=== PATIENT | male | born 1950 ===

== ENCOUNTER 2017-01-28 08:35 | Day surgery (SDC) | payer BC ==
[2017-01-23 13:24] VITALS: BMI 28.1
[2017-01-28] MEDS ORDERED: Lactated Ringer's 1,000 ML IV ONE ×3 (12:10)
[2017-01-28] MEDS ORDERED: Midazolam 2 MG/2 ML VIAL ONE (12:22)
[2017-01-28] MEDS ORDERED: Propofol 10 mg/ml Inj (20 ML) ONE (12:22)
[2017-01-28] MEDS ORDERED: Lidocaine Hydrochloride 5 ML INJ ONE (12:23)
[2017-01-28] MEDS ORDERED: ePHEDrine 50 mg/ml Inj ONE (12:23)
[2017-01-28] MEDS ORDERED: Bupivacaine HCl 0.25% PF (10 ml) Inj ONE (12:43)
[2017-01-28] MEDS ORDERED: ceFAZolin IV 1 gm in Dextrose 1 GM/50 ML BAG IVPB ONE (12:43)
[2017-01-28] MEDS ORDERED: HYDROmorphone 0.5 mg/0.5 ml ISec IVP PRN (13:07)
[2017-01-28] MEDS ORDERED: Oxycodone/Acetaminophen 5/325 mg Tab PO PRN (13:13)
[2017-01-28 13:59] VITALS: BP 113/73; PULSE 73; RESP 18; TEMP 97.1; O2SAT 96
--- NOTE | 2017-01-28 14:56 | OP ---
PROCEDURE DATE: 01/28/2017 PREOPERATIVE DIAGNOSIS: Mass of the left elbow. POSTOPERATIVE DIAGNOSIS: Mass of the left elbow. PROCEDURE PERFORMED: Wide and deep excision of suspicious mass of the left elbow with a radical rese ction and adjacent tissue transfer closure. SURGEON: Livan Stafford MD ANESTHESIA: General. ESTIMATED BLOOD LOSS: 20 mL. POSTOPERATIVE CONDITION: Stable. INDICATIONS FOR SURGERY: A 66-year-old male with a rapidly growing mass of his left elbow. A needle biopsy was inconclusive. He is now admitted for a wide and deep excision. GROSS FINDINGS: The mass had mixed characteristics, so it was treated as a malignant lesion. A wide and deep and radical resection was performed. There was bleeding noted from the ulnar blood vessel and this was repaired. An adjacent tissue transfer closure greater than 30 cm was utilized to close the open wound. PROCEDURE: The patient taken to the operating room and placed in supine position. Local anesthesia was administered. A generous elliptical incision was made surrounding the mass. It was encountered, dissected free into the muscle layer completely and all layers were completely removed. Bleeding wa s controlled using the Bovie. A Prolene was used to repair the ulnar artery. Generous tissue flaps were raised using the Bovie and a greater than 30 square cm adjacent tissue transfer closure was perf ormed using multiple layers of Monocryl, subcuticular Monocryl, and glue. The patient tolerated the procedure well, returned to recovery room in stable condition. Livan Stafford MD cc: [id number] TT: 01/28/2017 14:55:17 en
== END 2017-01-28 14:01 | disposition home or self-care (01) ==
LOC: C.SDS 08:35
PROVIDERS: ATTEND Surgery
DX: D21.12 Benign neoplasm of connective and other soft tissue of left upper limb, including shoulder (principal)
CPT/HCPCS: 24077; 82948; 88305; J0690; J2250; J2704; J3010; J7120

== ENCOUNTER 2017-02-07 17:34 | Observation (INO) | payer BC ==
[2017-01-23 13:24] VITALS: BMI 28.1
[2017-02-07 22:39] LABS: ALB/GLOB RATIO 1.3 (1.0-2.1); ALBUMIN 4.1 g/dL (3.5-5.0); ALT/SGPT 32 U/L (21-72); AST/SGOT 20 U/L (17-59); BLOOD UREA NITROGEN 18 mg/dL (9-20); CALCIUM 8.8 mg/dl (8.6-10.4); GFR AFRICAN-AMERICAN > 60; GFR NON-AFRICAN AMERICAN > 60
[2017-02-07 23:11] LABS: PROTHROMBIN TIME 11.6 SECONDS (9.7-12.2)
[2017-02-07 23:33] LABS: HEMOGLOBIN 14.6 g/dL (12.0-18.0); MEAN CELL VOLUME 89.2 fL (80.0-94.0); MEAN CORPUSCULAR HEMOGLOBIN 29.3 pg (27.0-31.0); MEAN CORPUSCULAR HGB CONC 32.9 g/dL (33.0-37.0); MEAN PLATELET VOLUME 11.6 fL (7.2-11.7); RBC 4.98 Mil/uL (4.40-5.90); RED CELL DISTRIBUTION WIDTH 13.9 % (11.5-14.5); WHITE BLOOD COUNT 6.6 K/uL (4.8-10.8)
--- NOTE | 2017-02-08 01:27 | CP.PCM.HP ---
<Horacio Mercedes Melissa - Last Filed: 02/08/17 01:47> History of Present Illness - History of Present Illness History of Present Illness: CC: Left forearm swelling s/p lipoma resection HPI: Mr Monte is a 66 yo male who presented to the ED for Left forearm swelling, discomfort and bleeding from the surgical site. Mr Monte is s /p lipoma resection [01/28] performed by Dr. Stafford. On 01/30 the patient noticed bleeding from the surgical site. He saw Dr Stafford regarding the bleed on 02/01 who advised him to apply pressure. Over the next few days he noticed increasing swelling and ecchymosis in the left forearm. He admits to tingling and pain in his hand and fingers over that time. He called Dr. Stafford who advised him to come the ED as Dr Stafford was concerned about a venous thrombosis. He took tramadol which controlled his pain. The patient has not taken his aspirin since the surgery as instructed. He denies fevers, chills, diaphoresis. PMHx: DM, HTN, HLD PSHx: Inguinal hernia repair 1973; Ventral hernia repair 1998; Cath 2005; Colonoscopy 2013 Medications: Losartan 25mg po daily, Metformin 500mg po daily, atorvastatin 10mg po daily, Aspirin 81mg Allergies: NKA FamHx: Sister has DM SocialHx: Quit smoking in 2001, smoked few cigarettes a week prior to that; social drinker; works as a doorman; lives with Present on Admission - Present on Admission Any Indicators Present on Admission: No Review of Systems - Constitutional Constitutional: absent: Chills, Fever - EENT Eyes: absent: Blurred Vision, Change in Vision Ears: absent: Ear Pain Nose/Mouth/Throat: absent: Sore Throat - Cardiovascular Cardiovascular: absent: Chest Pain, Diaphoresis, Dyspnea - Respiratory Respiratory: absent: Cough, Dyspnea - Gastrointestinal Gastrointestinal: absent: Bloating, Diarrhea, Vomiting - Genitourinary Genitourinary: absent: Dysuria - Musculoskeletal Musculoskeletal: Joint Swelling Additional comments: swelling around left elbow joint - Integumentary Integumentary: Wounds - Neurological Neurological: absent: Behavioral Changes - Psychiatric Psychiatric: absent: Behavioral Changes - Hematologic/Lymphatic Hematologic: absent: Easy Bleeding Past Patient History - Past Medical History & Family History Past Medical History?: Yes - Past Social History Smoking Status: Former Smoker - CARDIAC Hx Cardiac Disorders: Yes Hx Hypercholesterolemia: Yes Hx Hypertension: Yes - ENDOCRINE/METABOLIC Hx Endocrine Disorders: Yes Hx Diabetes Mellitus Type 2: Yes - INTEGUMENTARY Hx Dermatological Problems: Yes Other/Comment: HX: MASS LEFT ELBOW - MUSCULOSKELETAL/RHEUMATOLOGICAL Hx Musculoskeletal Disorders: Yes Hx Fractures: Yes (HX: FX. LEFT ELBOW) - SURGICAL HISTORY Hx Surgeries: Yes Hx Herniorrhaphy: Yes (bilat ing ventral) - ANESTHESIA Hx Anesthesia: Yes Hx Anesthesia Reactions: No Hx Malignant Hyperthermia: No Meds Allergies/Adverse Reactions: Allergies Allergy/AdvReac Type Severity Reaction Status Date / Time No Known Allergies Allergy Verified 02/08/17 00:11 Physical Exam - Constitutional Appears: Well, Non-toxic, No Acute Distress - Head Exam Head Exam: NORMAL INSPECTION - Eye Exam Eye Exam: EOMI, Normal appearance Pupil Exam: NORMAL ACCOMODATION, PERRL - Neck Exam Neck exam: Positive for: Normal Inspection - Respiratory Exam Respiratory Exam: Clear to Auscultation Bilateral, NORMAL BREATHING PATTERN. absent: Wheezes - Cardiovascular Exam Cardiovascular Exam: REGULAR RHYTHM, RRR, +S1, +S2 - GI/Abdominal Exam GI & Abdominal Exam: Normal Bowel Sounds, Soft - Rectal Exam Rectal Exam: Deferred - Extremities Exam Extremities exam: Positive for: joint swelling, tenderness. Negative for: pedal edema Additional comments: bloody discharge from surgical site incision ecchymosis around left elbow joint - Neurological Exam Neurological exam: Alert, Normal Gait, Oriented x3 - Psychiatric Exam Psychiatric exam: Normal Affect, Normal Mood - Skin Skin Exam: Erythema, Warm Results - Labs Result Diagrams: 02/07/17 22:15 02/07/17 22:15 Assessment & Plan (1) Swelling of elbow joint Assessment and Plan: wbc 6.6, afebrile vancomycin 1g q12 iv rocephin 1g daily iv ct upper left extremity w/ iv contrast venous duplex scan upper left extremity consult surgery, dr Stafford, help appreciated elevate left arm morning labs ordered, f/u Status: Acute (2) Diabetes mellitus Assessment and Plan: con't home med metformin 500mg po daily Status: Acute (3) HTN (hypertension) Assessment and Plan: con't home med losartan 25mg po daily Status: Acute (4) HLD (hyperlipidemia) Assessment and Plan: con't home med crestor 5mg po daily Status: Acute (5) Prophylactic measure Assessment and Plan: Per Dr. Monae, non indicated at this time Status: Acute <David Monae P - Last Filed: 02/12/17 06:26> Results - Vital Signs Recent Vital Signs: Last Vital Signs Temp 98.0 F 02/11/17 17:37 Pulse 87 02/11/17 17:37 Resp 20 02/11/17 17:37 BP 154/87 H 02/11/17 17:37 Pulse Ox 96 02/11/17 17:37 - Labs Result Diagrams: 02/11/17 08:00 02/11/17 08:00 Labs: Laboratory Results - last 24 hr 02/11/17 02/11/17 02/11/17 06:38 08:00 08:00 WBC 4.9 RBC 5.02 Hgb 14.8 Hct 44.4 MCV 88.4 MCH 29.4 MCHC 33.3 RDW 13.6 Plt Count 134 MPV 11.2 Neut % (Auto) 55.1 Lymph % (Auto) 32.4 [place] % (Auto) 8.1 Eos % (Auto) 3.5 Baso % (Auto) 0.9 Neut # 2.7 Lymph # 1.6 [place] # 0.4 Eos # 0.2 Baso # 0.0 Sodium 140 Potassium 3.9 Chloride 105 Carbon Dioxide 26 Anion Gap 13 BUN 17 Creatinine 0.7 L Est GFR ( Amer) > 60 Est GFR (Non-Af Amer) > 60 POC Glucose (mg/dL) 94 Random Glucose 95 Hemoglobin A1c Calcium 9.0 Phosphorus 3.7 Magnesium 2.3 Total Bilirubin 0.6 AST 24 ALT 28 Alkaline Phosphatase 34 L Total Protein 6.6 Albumin 3.7 Globulin 2.9 Albumin/Globulin Ratio 1.3 Triglycerides 65 Cholesterol 119 LDL Cholesterol Direct 70 HDL Cholesterol 42 02/11/17 02/11/17 08:00 12:00 WBC RBC Hgb Hct MCV MCH MCHC RDW Plt Count MPV Neut % (Auto) Lymph % (Auto) [place] % (Auto) Eos % (Auto) Baso % (Auto) Neut # Lymph # [place] # Eos # Baso # Sodium Potassium Chloride Carbon Dioxide Anion Gap BUN Creatinine Est GFR ( Amer) Est GFR (Non-Af Amer) POC Glucose (mg/dL) 125 H Random Glucose Hemoglobin A1c 6.4 Calcium Phosphorus Magnesium Total Bilirubin AST ALT Alkaline Phosphatase Total Protein Albumin Globulin Albumin/Globulin Ratio Triglycerides Cholesterol LDL Cholesterol Direct HDL Cholesterol Attending/Attestation - Attestation I have personally seen and examined this patient.: Yes I have fully participated in the care of the patient.: Yes I have reviewed all pertinent clinical information: Yes
[2017-02-08] MEDS ORDERED: Iodixanol 320 MG/ML 100 ML BOTTLE IV ONE (02:50)
[2017-02-08 07:25] LABS: BASO # 0.1 K/uL (0.0-0.2); BASO % 0.9 % (0.0-2.0); EOS # 0.1 K/uL (0.0-0.7); EOS % 2.1 % (0.0-4.0); LYMPH # 1.5 K/uL (1.0-4.3); LYMPH % 23.8 % (20.0-40.0); MEAN CELL VOLUME 89.2 fL (80.0-94.0); MEAN CORPUSCULAR HEMOGLOBIN 29.3 pg (27.0-31.0); MEAN CORPUSCULAR HGB CONC 32.9 g/dL (33.0-37.0); MEAN PLATELET VOLUME 11.6 fL (7.2-11.7); MONO # 0.7 K/uL (0.0-0.8); MONO % 11.2 % (0.0-10.0); NEUT # 3.8 K/uL (1.8-7.0); RBC 4.77 Mil/uL (4.40-5.90); RED CELL DISTRIBUTION WIDTH 13.6 % (11.5-14.5); WHITE BLOOD COUNT 6.1 K/uL (4.8-10.8)
[2017-02-08 07:53] LABS: ALBUMIN 3.6 g/dL (3.5-5.0)
[2017-02-08 07:55] LABS: GFR AFRICAN-AMERICAN > 60; GFR NON-AFRICAN AMERICAN > 60
[2017-02-08 07:56] LABS: ALB/GLOB RATIO 1.3 (1.0-2.1); ALT/SGPT 27 U/L (21-72); AST/SGOT 24 U/L (17-59); BLOOD UREA NITROGEN 14 mg/dL (9-20)
[2017-02-08 07:57] LABS: CALCIUM 8.5 mg/dl (8.6-10.4); MAGNESIUM 2.2 mg/dL (1.6-2.3)
--- NOTE | 2017-02-08 10:07 | CT ---
PROCEDURE: CT of the left elbow. HISTORY: r/o abscess COMPARISON: None available. TECHNIQUE: Contiguous axial images of the left elbow were obtained. Coronal and sagittal reformats were generated. Dose: 448.[address] exam was performed using one or more of the following dose reduction techniques: Automated exposure control, adjustment of the mA and/or KV according to patient size, and/or use of iterative reconstruction technique. FINDINGS: BONES: There is a nonunited old fracture in the olecranon process. There are subarticular cystic changes in the olecranon process. There is no acute displaced fracture or bone destruction. There is a small joint effusion. . SOFT TISSUES: There is diffuse subcutaneous edema in the posterior soft tissues of the elbow joint. The periarticular muscles are grossly normal in appearance however evaluation is limited due to extensive streak artifacts. IMPRESSION: 1. No acute fracture or bone destruction. Diffuse subcutaneous edema in the posterior soft tissues of the elbow joint could represent cellulitis. Evaluation for abscess or drainable fluid collection is limited due to extensive streak artifacts. If clinically indicated, an ultrasound may be performed for further evaluation. 2. 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 A preliminary report was provided by [employer] [facility].
--- NOTE | 2017-02-08 10:52 | CP.PCM.PN ---
Subjective - Date & Time of Evaluation Date of Evaluation: 02/08/17 Time of Evaluation: 07:10 - Subjective Subjective: PGY2 Medicine Note - Dr. Orozco's service: Patient seen and examined this AM. Resting comfortably, no acute distress, no overnight events per nursing. S/p lipoma resection [01/28] performed by Dr. Stafford on 01/30. Patient denies pain, numbness, or tinging of the L hand/arm. Reports no BM x3-4 days. Objective - Vital Signs/Intake and Output Vital Signs (last 24 hours): Temp Pulse Resp BP Pulse Ox 97.8 F 70 20 133/78 97 02/08/17 02:13 02/08/17 02:13 02/08/17 02:13 02/08/17 02:13 02/08/17 02:13 Intake and Output: 02/08/17 02/08/17 06:59 18:59 Intake Total 590 Balance 590 - Medications Medications: Current Medications Acetaminophen (Tylenol 325mg Tab) 650 mg PO Q6 PRN PRN Reason: Pain, moderate (4-7) Last Admin: 02/08/17 05:39 Dose: 650 mg Vancomycin HCl 1,000 mg/ (Sodium Chloride) 250 mls @ 166.6 mls/hr IVPB Q12H [facility] Last Admin: 02/08/17 03:57 Dose: 166.6 mls/hr Ceftriaxone Sodium 1 gm/ (Sodium Chloride) 100 mls @ 100 mls/hr IVPB Q24H [facility] Last Admin: 02/08/17 03:56 Dose: 100 mls/hr Losartan Potassium (Cozaar) 25 mg PO DAILY [facility] Last Admin: 02/08/17 09:27 Dose: 25 mg Rosuvastatin Calcium (Crestor) 5 mg PO HS [facility] - Labs Labs: 02/08/17 06:51 02/08/17 06:51 PT 11.6 SECONDS (9.7-12.2) 02/07/17 22:15 INR 1.0 02/07/17 22:15 APTT 32 SECONDS (21-34) 02/07/17 22:15 - Additional Findings Additional findings: - Constitutional Appears: Well, Non-toxic, No Acute Distress - Head Exam Head Exam: NORMAL INSPECTION - Eye Exam Eye Exam: EOMI, Normal appearance Pupil Exam: NORMAL ACCOMODATION, PERRL - Neck Exam Neck exam: Positive for: Normal Inspection - Respiratory Exam Respiratory Exam: Clear to Auscultation Bilateral, NORMAL BREATHING PATTERN. absent: Wheezes - Cardiovascular Exam Cardiovascular Exam: REGULAR RHYTHM, RRR, +S1, +S2 - GI/Abdominal Exam GI & Abdominal Exam: Normal Bowel Sounds, Soft - Rectal Exam Rectal Exam: Deferred - Extremities Exam Extremities exam: Positive for: joint swelling, tenderness. Negative for: pedal edema Additional comments: - bandages in place, bloody discharge from prior surgical site incision controlled - ecchymosis around left elbow joint - Neurological Exam Neurological exam: Alert, Normal Gait, Oriented x3 - no numbness/tingling - Psychiatric Exam Psychiatric exam: Normal Affect, Normal Mood - Skin Skin Exam: Erythema, Warm Assessment and Plan - Assessment and Plan (Free Text) Assessment: (1) Swelling of elbow joint Assessment and Plan: 02/08: Consult ID, Dr. Esparza, f/u recs -> Stop Rocefin. Start Zosyn 3.375 IVPB Q6H. - ct upper left extremity w/ iv contrast - No acute fracture or bone destruction. Diffuse subcutaneous edema in the posterior soft tissues of the elbow joint could represent cellulitis. Evaluation for abscess or drainable fluid collection is limited due to extensive streak artifacts. 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 ( VRADS - see full report) - venous duplex scan upper left extremity - will be performed 02/09. wbc 6.1, afebrile vancomycin 1g q12 iv consult surgery, dr Stafford, help appreciated elevate left arm Status: Acute (2) Diabetes mellitus Assessment and Plan: con't home med metformin 500mg po daily Status: Acute (3) HTN (hypertension) Assessment and Plan: con't home med losartan 25mg po daily Status: Acute (4) HLD (hyperlipidemia) Assessment and Plan: con't home med crestor 5mg po daily Status: Acute (5) Prophylactic measure Assessment and Plan: Per Dr. Monae, non indicated at this time Status: Acute
[2017-02-08] MEDS ORDERED: Piperacillin/Tazobact 3.375 GM in Sodium Chloride 100 ML IVPB SCH (14:45)
[2017-02-08 17:00] VITALS: RESP 20
[2017-02-08] MEDS: Piperacill/Tazo 3.375gm in Dex 3.375 GM/50 ML BAG IVPB SCH ×2 (17:34→21:42)
[2017-02-09] MEDS: Piperacill/Tazo 3.375gm in Dex 3.375 GM/50 ML BAG IVPB SCH ×4 (04:14→22:59)
--- NOTE | 2017-02-09 10:51 | VASCLAB ---
PROCEDURE: Left Upper Extremity Venous Duplex Exam HISTORY: Leg pain, possible venous thromboembolism PRIORS: None. TECHNIQUE: Left upper extremity, internal jugular, subclavian, axillary, brachial, ulnar, radial, basilic and upper cephalic veins were evaluated. Flow was assessed with color Doppler, compressibility, assessment of phasic flow and augmentation response. Report prepared by SOFIA Cortez FINDINGS: LEFT: 1. Internal Jugular: 1.1. NOT VISUALIZED 2. Subclavian: 2.1. Compressibility - Fully compressible: Thrombus - None : Flow - Phasic: Augmentation -Normal: Reflux - None. 3. Axillary: 3.1. Compressibility - Fully compressible: Thrombus - None : Flow - Phasic: Augmentation -Normal: Reflux - None. 4. Brachial: 4.1. Compressibility - Fully compressible: Thrombus - None: Flow - Phasic: Augmentation -Normal: Reflux - None. 5. Ulnar: 5.1. Compressibility - Fully compressible: Thrombus - None: Flow - Phasic: Augmentation -Normal: Reflux - None. 6. Radial: 6.1. Compressibility - Fully compressible: Thrombus - None: Flow - Phasic: Augmentation - Normal: Reflux - None. 7. Cephalic: 7.1. Compressibility - Fully compressible: Thrombus - None: Flow - Phasic: Augmentation -Normal: Reflux - None. 8. Basilic: 8.1. Compressibility - Fully compressible: Thrombus - None: Flow - Phasic: Augmentation -Normal: Reflux - None. OTHER FINDINGS: Left: None. IMPRESSION: Left: No evidence of vein thrombosis of the left upper extremity with excellent venous flow. The left internal jugular vein was not identified, otherwise normal exam. Normal venous flow noted in the right internal jugular and right subclavian veins.
[2017-02-09] MEDS ORDERED: Bisacodyl 5mg EC Tab PO ONE (11:25)
[2017-02-09 12:00] LABS: BASO % 0.5 % (0.0-2.0); EOS # 0.1 K/uL (0.0-0.7); EOS % 2.1 % (0.0-4.0); HEMOGLOBIN 14.5 g/dL (12.0-18.0); LYMPH # 1.2 K/uL (1.0-4.3); LYMPH % 20.7 % (20.0-40.0); MEAN CELL VOLUME 89.5 fL (80.0-94.0); MEAN CORPUSCULAR HEMOGLOBIN 29.3 pg (27.0-31.0); MEAN CORPUSCULAR HGB CONC 32.8 g/dL (33.0-37.0); MEAN PLATELET VOLUME 11.6 fL (7.2-11.7); MONO # 0.5 K/uL (0.0-0.8); MONO % 8.1 % (0.0-10.0); NEUT % 68.6 % (50.0-75.0); NRBC % 0.1 % (0.0-2.0); RBC 4.95 Mil/uL (4.40-5.90); RED CELL DISTRIBUTION WIDTH 13.4 % (11.5-14.5); WHITE BLOOD COUNT 5.9 K/uL (4.8-10.8)
[2017-02-09 12:13] LABS: ALBUMIN 3.8 g/dL (3.5-5.0)
[2017-02-09] MEDS: Saccharomyces Boulardi 250 mg Cap PO SCH ×2 (12:13→17:51)
[2017-02-09 12:15] LABS: GFR AFRICAN-AMERICAN > 60; GFR NON-AFRICAN AMERICAN > 60
[2017-02-09 12:16] LABS: ALB/GLOB RATIO 1.2 (1.0-2.1); ALT/SGPT 25 U/L (21-72); AST/SGOT 21 U/L (17-59); BLOOD UREA NITROGEN 15 mg/dL (9-20); CALCIUM 8.9 mg/dl (8.6-10.4); MAGNESIUM 2.2 mg/dL (1.6-2.3)
--- NOTE | 2017-02-09 12:17 | CP.PCM.PN ---
<Celi Ji - Last Filed: 02/09/17 20:15> Subjective - Date & Time of Evaluation Date of Evaluation: 02/09/17 Time of Evaluation: 12:17 - Subjective Subjective: Medicine Progress Notes- Dr. Pope Service Patient was seen and examined at bedside in no acute distress. Patient was ambulating at that time. He reports feeling better today. He admits to constipation since Thursday, but when examined later in the day, he reports having a bowel movement. Patient denies chest pain, abdominal pain, fevers, chills, nausea, vomiting, dizziness, and shortness of breath. Objective - Vital Signs/Intake and Output Vital Signs (last 24 hours): Temp Pulse Resp BP Pulse Ox 97.7 F 62 20 128/73 98 02/09/17 07:55 02/09/17 07:55 02/09/17 07:55 02/09/17 07:55 02/09/17 07:55 Intake and Output: 02/09/17 02/09/17 06:59 18:59 Intake Total 1310 Balance 1310 - Medications Medications: Current Medications Acetaminophen (Tylenol 325mg Tab) 650 mg PO Q6 PRN PRN Reason: Pain, moderate (4-7) Last Admin: 02/08/17 05:39 Dose: 650 mg Docusate Sodium (Colace) 100 mg PO BID [facility] Last Admin: 02/09/17 10:28 Dose: 100 mg Heparin Sodium (Porcine) (Heparin) 5,000 units SC Q12 [facility] Last Admin: 02/09/17 10:28 Dose: 5,000 units Vancomycin HCl 1,000 mg/ (Sodium Chloride) 250 mls @ 166.6 mls/hr IVPB Q12H [facility] Last Admin: 02/09/17 01:57 Dose: 166.6 mls/hr Piperacillin Sod/Tazobactam Sod (Zosyn 3.375 Gm Iv Premix) 3.375 gm in 50 mls @ 100 mls/hr IVPB Q6H [facility] Last Admin: 02/09/17 10:33 Dose: 100 mls/hr Losartan Potassium (Cozaar) 25 mg PO DAILY [facility] Last Admin: 02/09/17 10:28 Dose: 25 mg Rosuvastatin Calcium (Crestor) 5 mg PO HS [facility] Last Admin: 07/02/17 21:41 Dose: 5 mg Saccharomyces Boulardii (Florastor) 250 mg PO BID [facility] Last Admin: 02/09/17 12:13 Dose: 250 mg - Labs Labs: 02/09/17 11:53 02/09/17 11:53 PT 11.6 SECONDS (9.7-12.2) 02/07/17 22:15 INR 1.0 02/07/17 22:15 APTT 32 SECONDS (21-34) 02/07/17 22:15 - Constitutional Appears: No Acute Distress - Head Exam Head Exam: NORMAL INSPECTION, NORMOCEPHALIC - Eye Exam Eye Exam: EOMI, Normal appearance - ENT Exam ENT Exam: Mucous Membranes Moist - Neck Exam Neck Exam: Full ROM, Normal Inspection - Respiratory Exam Respiratory Exam: Clear to Ausculation Bilateral, NORMAL BREATHING PATTERN. absent: Rhonchi, Wheezes - Cardiovascular Exam Cardiovascular Exam: REGULAR RHYTHM, +S1, +S2 - GI/Abdominal Exam GI & Abdominal Exam: Soft, Tenderness, Normal Bowel Sounds - Extremities Exam Extremities Exam: Full ROM. absent: Calf Tenderness, Pedal Edema - Neurological Exam Neurological Exam: Alert, Awake, Oriented x3 - Psychiatric Exam Psychiatric exam: Normal Affect, Normal Mood - Skin Skin Exam: Dry, Intact, Normal Color, Warm Additional comments: Possible cellulitis of Left elbow (post-lipoma removal); no discharge or drainage from wound Assessment and Plan (1) Swelling of elbow joint Assessment & Plan: WBC 5.9 , afebrile Vancomycin 1g q12 iv Doscontinued Rocephin 1g daily iv CT upper left extremity w/ iv contrast Venous duplex scan upper left extremity Consult surgery, dr Stafford, help appreciated Elevate left arm 02/08: Consult ID, Dr. Esparza, f/u recs -> Stop Rocefin. Start Zosyn 3.375 IVPB Q6H. 02/[address] Esparza, sensitivity of wound culture pending-- once sensitivity know, can be discharged home with PO antibiotics CT upper left extremity w/ IV contrast - No acute fracture or bone destruction. Diffuse subcutaneous edema in the posterior soft tissues of the elbow joint could represent cellulitis. Evaluation for abscess or drainable fluid collection is limited due to extensive streak artifacts. 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 (VRADS - see full report) Venous duplex scan upper left extremity 02/09/17- no abnormalities Vanco trough 02/09/17- 7.5 Status: Acute (2) Diabetes mellitus Assessment & Plan: Continue home med metformin 500mg po daily Status: Acute (3) HLD (hyperlipidemia) Assessment & Plan: Continue home med losartan 25mg po daily Status: Acute (4) HTN (hypertension) Assessment & Plan: Continue home med crestor 5mg po daily Status: Acute (5) Prophylactic measure Assessment & Plan: SCDs Florastor 250mg PO BID Regular diet Heparin 5,000 units SC Q12 Ele[facility] LUE Status: Acute <Milady Pope V - Last Filed: 02/09/17 22:57> Objective - Vital Signs/Intake and Output Vital Signs (last 24 hours): Temp Pulse Resp BP Pulse Ox 97.9 F 69 20 135/74 97 02/09/17 16:00 02/09/17 16:00 02/09/17 16:00 02/09/17 16:00 02/09/17 16:00 Intake and Output: 02/09/17 02/10/17 18:59 06:59 Intake Total 1160 Balance 1160 - Medications Medications: Current Medications Acetaminophen (Tylenol 325mg Tab) 650 mg PO Q6 PRN PRN Reason: Pain, moderate (4-7) Last Admin: 02/08/17 05:39 Dose: 650 mg Docusate Sodium (Colace) 100 mg PO BID [facility] Last Admin: 02/09/17 17:51 Dose: 100 mg Heparin Sodium (Porcine) (Heparin) 5,000 units SC Q12 [facility] Last Admin: 02/09/17 21:44 Dose: 5,000 units Vancomycin HCl 1,000 mg/ (Sodium Chloride) 250 mls @ 166.6 mls/hr IVPB Q12H [facility] Last Admin: 02/09/17 14:08 Dose: 166.6 mls/hr Piperacillin Sod/Tazobactam Sod (Zosyn 3.375 Gm Iv Premix) 3.375 gm in 50 mls @ 100 mls/hr IVPB Q6H [facility] Last Admin: 02/09/17 16:27 Dose: 100 mls/hr Losartan Potassium (Cozaar) 25 mg PO DAILY [facility] Last Admin: 02/09/17 10:28 Dose: 25 mg Rosuvastatin Calcium (Crestor) 5 mg PO HS [facility] Last Admin: 02/09/17 21:45 Dose: 5 mg Saccharomyces Boulardii (Florastor) 250 mg PO BID [facility] Last Admin: 02/09/17 17:51 Dose: 250 mg - Labs Labs: 02/09/17 11:53 02/09/17 11:53 PT 11.6 SECONDS (9.7-12.2) 02/07/17 22:15 INR 1.0 02/07/17 22:15 APTT 32 SECONDS (21-34) 02/07/17 22:15 Attending/Attestation - Attestation I have personally seen and examined this patient.: Yes I have fully participated in the care of the patient.: Yes I have reviewed all pertinent clinical information, including history, physical exam and plan: Yes Notes (Text): Patient seen, examined, and case discussed with day-time university intern. Patient seen during morning rounds. Patient had a bowel movement prior to my arrival. Patient reports minimal pain around left elbow area, observed erythema, swelling , and discharge on the dressing. Discussed with infectious disease, awaiting wound culture, recommendations possible for Bactrim or Zyvox. Discussed with lab, wound culture shows Staph Aureus awaiting sensitivites to be available tomorrow. Patient currently on IV antibiotics. Venous doppler r/o DVT. Patient is requesting his surgeon who had performed excision of lipoma in the same arm. will attempt to call patient's surgeon.
--- NOTE | 2017-02-09 15:35 | CP.PCM.CON ---
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 Patient says his swelling is little better today and wants to go home but wound is growing GPC and he is diabetic He saw Dr Stafford regarding the bleed on 02/01 who advised him to apply pressure. Over the next few days he noticed increasing swelling and ecchymosis in the left forearm. He admits to tingling and pain in his hand and fingers over that time. He called Dr. Stafford who advised him to come the ED as Dr Stafford was concerned about a venous thrombosis. He took tramadol which controlled his pain. The patient has not taken his aspirin since the surgery as instructed. He denies fevers, chills, diaphoresis. PMHx: DM, HTN, HLD PSHx: Inguinal hernia repair 1973; Ventral hernia repair 1998; Cath 2005; Colonoscopy 2013 Medications: Losartan 25mg po daily, Metformin 500mg po daily, atorvastatin 10mg po daily, Aspirin 81mg Allergies: NKA FamHx: Sister has DM SocialHx: Quit smoking in 2001, smoked few cigarettes a week prior to that; social drinker; works as a doorman; lives with Review of Systems - Review of Systems Systems not reviewed;Unavailable: Unstable Vital Signs - Constitutional Constitutional: absent: As Per HPI, Anorexia, Chills, Daytime Sleepiness, Excessive Sweating, Fatigue, Fever, Frequent Falls, Headache, Increased Appetite , Lethargy, Malaise, Night Sweats, Snoring, Sleep Apnea, Weight Gain, Weight Loss, Weakness, Other - EENT Eyes: absent: As Per HPI, Blind Spots, Blurred Vision, Change in Vision, Decreased Night Vision, Diplopia, Discharge, Dry Eye, Exophthalmos, Floaters, Irritation, Itchy Eyes, Loss of Peripheral Vision, Pain, Photophobia, Requires Corrective Lenses, Sees Flashes, Spots in Vision, Tunnel Vision, Other Visual Disturbances, Loss of Vision, Other Ears: absent: As Per HPI, Decreased Hearing, Ear Discharge, Ear Pain, Tinnitus, Abnormal Hearing, Disequilibrium, Dizziness, Other Nose/Mouth/Throat: absent: As Per HPI, Epistaxis, Nasal Congestion, Nasal Discharge, Nasal Obstruction, Nasal Trauma, Nose Pain, Post Nasal Drip, Sinus Pain, Sinus Pressure, Bleeding Gums, Change in Voice, Dental Pain, Dry Mouth, Dysphagia, Halitosis, Hoarsness, Lip Swelling, Mouth Lesions, Mouth Pain, Odynophagia, Sore Throat, Throat Swelling, Tongue Swelling, Facial Pain, Neck Pain, Neck Mass, Other - Cardiovascular Cardiovascular: absent: As Per HPI, Acrocyanosis, Chest Pain, Chest Pain at Rest , Chest Pain with Activity, Claudication, Diaphoresis, Dyspnea, Dyspnea on Exertion, Edema, Irregular Heart Rhythm, Pain Radiating to Arm/Neck/Jaw, Leg Edema, Leg Ulcers, Lightheadedness, Orthopnea, Palpitations, Paroxysmal Nocturnal Dyspnea, Pedal Edema, Radiating Pain, Rapid Heart Rate, Slow Heart Rate, Syncope, Other - Respiratory Respiratory: absent: As Per HPI, Cough, Dyspnea, Hemoptysis, Dyspnea on Exertion , Wheezing, Snoring, Stridor, Pain on Inspiration, Chest Congestion, Excessive Mucous Production, Change in Mucous Color, Pain with Coughing, Other - Gastrointestinal Gastrointestinal: absent: As Per HPI, Abdominal Pain, Belching, Bloating, Change in Bowel Habits, Change in Stool Character, Coffee Ground Emesis, Constipation, Cramping, Diarrhea, Dyspepsia, Dysphagia, Early Satiety, Excessive Flatus, Fecal Incontinence, Heartburn, Hematemesis, Hematochezia, Loose Stools, Melena, Nausea, Odynophagia, Temesmus, Vomiting, Other - Genitourinary Genitourinary: absent: As Per HPI, Change in Urinary Stream, Difficulty Urinating, Dysuria, Flank Pain, Hematuria, Pyuria, Nocturia, Urinary Incontinence, Urinary Frequency, Urinary Hesitance, Urinary Urgency, Voiding Freq/Small Amts, Freq UTI, Hx Renal/Bladder Calculi, Hx /Renal Surgery, Bladder Distension, Other - Musculoskeletal Musculoskeletal: absent: As Per HPI, Abnormal Gait, Arthralgias, Atrophy, Back Pain, Deformity, Joint Swelling, Limited Range of Motion, Loss of Height, Muscle Cramps, Muscle Weakness, Myalgias, Neck Pain, Numbness, Radiating Pain into Limb, Stiffness, Tingling, Other Additional comments: left forearm swelling and pain ,numbness tigling in hand - Integumentary Integumentary: absent: As Per HPI, Acne, Alopecia, Bleeding Lesions, Change in Hair, Change in Nails, Change in Pigmentation, Changing Lesions, Dry Skin, Erythema, Furuncle, Hirsutism, Lesions, New Lesions, Non-Healing Lesions, Photosensitivity, Pruritus, Rash, Skin Pain, Skin Ulcer, Sores, Striae, Swelling , Unusual Bruising, Wounds, Jaundice, Other - Neurological Neurological: absent: As Per HPI, Abnormal Gait, Abnormal Hearing, Abnormal Movements, Abnormal Speech, Behavioral Changes, Burning Sensations, Confusion, Convulsions, Disequilibrium, Dizziness, Numbness, Focal Weakness, Frequent Falls , Headaches, Lack of Coordination, Loss of Vision, Memory Loss, Paresthesias, Radicular Pain, Restless Legs, Sensory Deficit, Syncope, Tingling, Tremor, Vertigo, Weakness, Other Visual Disturbances, Other - Psychiatric Psychiatric: absent: As Per HPI, Abnormal Sleep Pattern, Anhedonia, Anxiety, Auditory Hallucinations, Behavioral Changes, Change in Appetite, Change in Libido, Confusion, Depression, Difficulty Concentrating, Hallucinations, Homicidal Ideation, Hopelessness, Irritability, Memory Loss, Mood Swings, Panic Attacks, Paranoia, Suicidal Ideation, Visual Hallucinations, Tactile Hallucinations, Other Past Patient History - Past Medical History & Family History Past Medical History?: Yes - Past Social History Smoking Status: Former Smoker - CARDIAC Hx Cardiac Disorders: Yes Hx Hypercholesterolemia: Yes Hx Hypertension: Yes - PULMONARY Hx Respiratory Disorders: No - NEUROLOGICAL Hx Neurological Disorder: No - HEENT Hx HEENT Problems: No - RENAL Hx Chronic Kidney Disease: No - ENDOCRINE/METABOLIC Hx Endocrine Disorders: Yes Hx Diabetes Mellitus Type 2: Yes - HEMATOLOGICAL/ONCOLOGICAL Hx Blood Disorders: No - INTEGUMENTARY Hx Dermatological Problems: Yes Other/Comment: HX: MASS LEFT ELBOW - MUSCULOSKELETAL/RHEUMATOLOGICAL Hx Musculoskeletal Disorders: Yes Hx Falls: Yes Hx Fractures: Yes (HX: FX. LEFT ELBOW) - GASTROINTESTINAL Hx Gastrointestinal Disorders: No - GENITOURINARY/GYNECOLOGICAL Hx Genitourinary Disorders: No - PSYCHIATRIC Hx Psychophysiologic Disorder: No Hx Substance Use: No - SURGICAL HISTORY Hx Surgeries: Yes Hx Herniorrhaphy: Yes (bilat ing ventral) - ANESTHESIA Hx Anesthesia: Yes Hx Anesthesia Reactions: No Hx Malignant Hyperthermia: No Meds Allergies/Adverse Reactions: Allergies Allergy/AdvReac Type Severity Reaction Status Date / Time No Known Allergies Allergy Verified 02/08/17 00:11 - Medications Medications: Current Medications Acetaminophen (Tylenol 325mg Tab) 650 mg PO Q6 PRN PRN Reason: Pain, moderate (4-7) Last Admin: 02/08/17 05:39 Dose: 650 mg Docusate Sodium (Colace) 100 mg PO BID [facility] Last Admin: 02/09/17 10:28 Dose: 100 mg Heparin Sodium (Porcine) (Heparin) 5,000 units SC Q12 [facility] Last Admin: 02/09/17 10:28 Dose: 5,000 units Vancomycin HCl 1,000 mg/ (Sodium Chloride) 250 mls @ 166.6 mls/hr IVPB Q12H [facility] Last Admin: 02/09/17 14:08 Dose: 166.6 mls/hr Piperacillin Sod/Tazobactam Sod (Zosyn 3.375 Gm Iv Premix) 3.375 gm in 50 mls @ 100 mls/hr IVPB Q6H [facility] Last Admin: 02/09/17 10:33 Dose: 100 mls/hr Losartan Potassium (Cozaar) 25 mg PO DAILY [facility] Last Admin: 02/09/17 10:28 Dose: 25 mg Rosuvastatin Calcium (Crestor) 5 mg PO HS [facility] Last Admin: 02/08/17 21:41 Dose: 5 mg Saccharomyces Boulardii (Florastor) 250 mg PO BID [facility] Last Admin: 02/09/17 12:13 Dose: 250 mg Physical Exam - Constitutional Appears: No Acute Distress - Head Exam Head Exam: ATRAUMATIC, NORMOCEPHALIC - Eye Exam Eye Exam: Normal appearance Pupil Exam: PERRL - ENT Exam ENT Exam: Mucous Membranes Moist - Neck Exam Neck exam: Positive for: Normal Inspection - Respiratory Exam Respiratory Exam: Clear to Auscultation Bilateral, NORMAL BREATHING PATTERN - Cardiovascular Exam Cardiovascular Exam: REGULAR RHYTHM, RRR. absent: Bradycardia, Tachycardia, Clicks, Diastolic murmur, Gallop, Irregular Rhythm, JVD, Rubs, +S1, +S2, +S4, Systolic Murmur - GI/Abdominal Exam GI & Abdominal Exam: Normal Bowel Sounds. absent: Bruit, Diminished Bowel Sounds, Distended, Firm, Guarding, Hernia, Hyperactive Bowel Sounds, Hypoactive Bowel Sounds, Mass, Organomegaly, Pulsatile Mass, Rebound, Rigid, Soft, Tenderness - Extremities Exam Extremities exam: Positive for: normal inspection Additional comments: except left forearm swelling present with forearm ecchymosis and wound site is not bleeding but healing well inspite of swelling .Patient told to keep the arm raised at the elbow joint to help healing Results - Vital Signs Recent Vital Signs: Last Vital Signs Temp 97.7 F 02/09/17 07:55 Pulse 62 02/09/17 07:55 Resp 20 02/09/17 07:55 BP 128/73 02/09/17 07:55 Pulse Ox 98 02/09/17 07:55 - Labs Result Diagrams: 02/09/17 11:53 02/09/17 11:53 Labs: Laboratory Results - last 24 hr 02/08/17 02/08/17 02/09/17 16:36 21:10 06:24 WBC RBC Hgb Hct MCV MCH MCHC RDW Plt Count MPV Neut % (Auto) Lymph % (Auto) Newton % (Auto) Eos % (Auto) Baso % (Auto) Neut # Lymph # Newton # Eos # Baso # Differential Comment Sodium Potassium Chloride Carbon Dioxide Anion Gap BUN Creatinine Est GFR ( Amer) Est GFR (Non-Af Amer) POC Glucose (mg/dL) 107 144 H 118 H Random Glucose Calcium Phosphorus Magnesium Total Bilirubin AST ALT Alkaline Phosphatase Total Protein Albumin Globulin Albumin/Globulin Ratio Vancomycin Trough 02/09/17 02/09/17 02/09/17 11:12 11:53 11:53 WBC 5.9 RBC 4.95 Hgb 14.5 Hct 44.3 MCV 89.5 MCH 29.3 MCHC 32.8 L RDW 13.4 Plt Count 128 L MPV 11.6 Neut % (Auto) 68.6 Lymph % (Auto) 20.7 Newton % (Auto) 8.1 Eos % (Auto) 2.1 Baso % (Auto) 0.5 Neut # 4.0 Lymph # 1.2 Newton # 0.5 Eos # 0.1 Baso # 0.0 Differential Comment Sodium 140 Potassium 3.6 Chloride 104 Carbon Dioxide 24 Anion Gap 15 BUN 15 Creatinine 0.7 L Est GFR ( Amer) > 60 Est GFR (Non-Af Amer) > 60 POC Glucose (mg/dL) 134 H Random Glucose 140 H Calcium 8.9 Phosphorus 3.2 Magnesium 2.2 Total Bilirubin 0.6 AST 21 ALT 25 Alkaline Phosphatase 35 L Total Protein 6.9 Albumin 3.8 Globulin 3.1 Albumin/Globulin Ratio 1.2 Vancomycin Trough 02/09/17 11:53 WBC RBC Hgb Hct MCV MCH MCHC RDW Plt Count MPV Neut % (Auto) Lymph % (Auto) Newton % (Auto) Eos % (Auto) Baso % (Auto) Neut # Lymph # Newton # Eos # Baso # Differential Comment Sodium Potassium Chloride Carbon Dioxide Anion Gap BUN Creatinine Est GFR ( Amer) Est GFR (Non-Af Amer) POC Glucose (mg/dL) Random Glucose Calcium Phosphorus Magnesium Total Bilirubin AST ALT Alkaline Phosphatase Total Protein Albumin Globulin Albumin/Globulin Ratio Vancomycin Trough 7.5 Assessment & Plan (1) Swelling of elbow joint Assessment and Plan: Patient had post op swelling and ecchymosis leading to cellulitis and infection and his wound has culture positive for staph and senstivity is pending. Once we know the senstivity pt can be discharged on po antibiotics and arm elevation He is diabetic and has swelling of left forearm Status: Acute
[2017-02-10] MEDS: Piperacill/Tazo 3.375gm in Dex 3.375 GM/50 ML BAG IVPB SCH ×2 (04:41→09:49)
[2017-02-10 08:06] LABS: BASO % 0.7 % (0.0-2.0); EOS # 0.2 K/uL (0.0-0.7); EOS % 3.7 % (0.0-4.0); LYMPH # 1.6 K/uL (1.0-4.3); LYMPH % 32.4 % (20.0-40.0); MEAN CELL VOLUME 89.8 fL (80.0-94.0); MEAN CORPUSCULAR HEMOGLOBIN 29.6 pg (27.0-31.0); MEAN PLATELET VOLUME 11.7 fL (7.2-11.7); MONO # 0.5 K/uL (0.0-0.8); MONO % 9.3 % (0.0-10.0); NEUT # 2.7 K/uL (1.8-7.0); NEUT % 53.9 % (50.0-75.0); RBC 5.05 Mil/uL (4.40-5.90); RED CELL DISTRIBUTION WIDTH 13.8 % (11.5-14.5)
[2017-02-10 08:18] LABS: ALBUMIN 3.7 g/dL (3.5-5.0)
[2017-02-10 08:21] LABS: ALB/GLOB RATIO 1.2 (1.0-2.1); ALT/SGPT 31 U/L (21-72); AST/SGOT 24 U/L (17-59); BLOOD UREA NITROGEN 16 mg/dL (9-20); GFR AFRICAN-AMERICAN > 60; GFR NON-AFRICAN AMERICAN > 60
[2017-02-10 08:22] LABS: CALCIUM 8.9 mg/dl (8.6-10.4); MAGNESIUM 2.2 mg/dL (1.6-2.3)
[2017-02-10] MEDS: Saccharomyces Boulardi 250 mg Cap PO SCH ×2 (09:30→18:28)
--- NOTE | 2017-02-10 12:34 | CP.PCM.PN ---
Subjective - Date & Time of Evaluation Date of Evaluation: 02/10/17 Time of Evaluation: 12:20 - Subjective Subjective: Medical Attending Note Follow-up: Patient seen and examined at bedside. Patient had extensive conversation at bedside. 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 Patient denies fever, denies chills, denies chest pain, denies constipation, denies shortness of breathe, denies abdominal pain, denies dysuria. Patient's wound dressed this morning. Patient's has mild pus coming from the site and reports irritation from the tape from before. Objective - Vital Signs/Intake and Output Vital Signs (last 24 hours): Temp Pulse Resp BP Pulse Ox 97.4 F L 69 20 155/92 H 97 02/10/17 07:10 02/10/17 07:10 02/10/17 07:10 02/10/17 07:10 02/10/17 07:10 Intake and Output: 02/10/17 02/10/17 06:59 18:59 Intake Total 50 Balance 50 - Medications Medications: Current Medications Acetaminophen (Tylenol 325mg Tab) 650 mg PO Q6 PRN PRN Reason: Pain, moderate (4-7) Last Admin: 02/08/17 05:39 Dose: 650 mg Docusate Sodium (Colace) 100 mg PO BID [facility] Last Admin: 02/10/17 09:30 Dose: 100 mg Heparin Sodium (Porcine) (Heparin) 5,000 units SC Q12 [facility] Last Admin: 02/10/17 09:30 Dose: 5,000 units Vancomycin HCl 1,000 mg/ (Sodium Chloride) 250 mls @ 166.6 mls/hr IVPB Q12H [facility] Last Admin: 02/10/17 01:27 Dose: 166.6 mls/hr Losartan Potassium (Cozaar) 25 mg PO DAILY [facility] Last Admin: 02/10/17 09:30 Dose: 25 mg Mupirocin (Bactroban Ointment) 0 gm TOP BID [facility] Rosuvastatin Calcium (Crestor) 5 mg PO HS [facility] Last Admin: 02/09/17 21:45 Dose: 5 mg Saccharomyces Boulardii (Florastor) 250 mg PO BID [facility] Last Admin: 02/10/17 09:30 Dose: 250 mg - Labs Labs: 02/10/17 07:55 02/10/17 07:55 PT 11.6 SECONDS (9.7-12.2) 02/07/17 22:15 INR 1.0 02/07/17 22:15 APTT 32 SECONDS (21-34) 02/07/17 22:15 - Constitutional Appears: Non-toxic, No Acute Distress - Head Exam Head Exam: NORMAL INSPECTION - Eye Exam Eye Exam: EOMI - ENT Exam ENT Exam: Mucous Membranes Dry - Respiratory Exam Respiratory Exam: Clear to Ausculation Bilateral, NORMAL BREATHING PATTERN. absent: Rales, Rhonchi, Wheezes - Cardiovascular Exam Cardiovascular Exam: REGULAR RHYTHM, +S1, +S2 - GI/Abdominal Exam GI & Abdominal Exam: Soft, Normal Bowel Sounds. absent: Distended, Firm, Guarding, Rigid, Tenderness, Rebound - Extremities Exam Extremities Exam: Normal Capillary Refill. absent: Pedal Edema, Tenderness - Neurological Exam Neurological Exam: Alert, Awake, Oriented x3 - Psychiatric Exam Psychiatric exam: Normal Affect, Normal Mood - Skin Skin Exam: Dry, Intact, Normal Color, Warm Additional comments: Left elbow: dressing--clean/dry/intact; erythema noted from tape Assessment and Plan (1) Cellulitis Assessment & Plan: General surgery (Dr. Lauren)-->will come and evaluate the patient tomorrow; resident confirmed today Infectious disease (Dr. Esparza)-->help appreciated * Wound culture (02/07/17) MRSA-->sensitive to Vancomycin * Patient is afebrile and does not show leukocytosis * Vancomycin 1gram IV Q 12hours (Active since 02/08/17) * Zosyn 3.75 IV Q 6hours (active since 02/08/17); discontinued in light of wound culture result * Contact isolation * Bactroban ointment to apply to affected area * Venous duplex: no evidence of thrombosis in the left upper extremity with excellent venous flow. left internal juglar vein was noted identifed. Normal venous flow noted * CT Scan (02/08/17): no acute fracture or bone destruction. Diffuse subcutaneous edema in the posterio soft tissues of the elbow in the posterio soft tissues of the elbow joint could represent cellulitis. Evaluation for abscess or drainable fluid collection is limited due to extensive streak artifacts. If clinically indicated, an ultrasound may be performed for further evaluation. Chronic non- united fracture of the olecranon process with subarticular cystic changes. * Blood cultures ordered * Will order for ultrasound to clarify for abscess; given today is holiday will likely be completed tomorrow Status: Acute (2) Diabetes mellitus Assessment & Plan: Order for [id number], lipid panel in the AM Accuchecks qAC and HS insulin sliding scale subq Crestor 5mg POqHS Losartan 25mg PO daily Status: Chronic (3) HLD (hyperlipidemia) Assessment & Plan: Crestor 5mg POqHS Lipid panel in AM Status: Chronic (4) HTN (hypertension) Assessment & Plan: Losartan 25mg PO daily Monitor vital signs Status: Chronic (5) Prophylactic measure Assessment & Plan: Heparin 5000 units subq 2hours Florastor 250mg PO bid Contact isolation Pepcid 20mg PO bid Tylenol 650mg PO Q 6hour PRN pain Status: Acute
[2017-02-10] MEDS: (Novolin R) Insulin Human Regular 100 units/ml vial SC SCH ×2 (18:28→22:00)
[2017-02-11] MEDS: (Novolin R) Insulin Human Regular 100 units/ml vial SC SCH ×2 (08:10→11:30)
[2017-02-11 08:22] LABS: BASO % 0.9 % (0.0-2.0); EOS # 0.2 K/uL (0.0-0.7); EOS % 3.5 % (0.0-4.0); HEMOGLOBIN 14.8 g/dL (12.0-18.0); LYMPH # 1.6 K/uL (1.0-4.3); LYMPH % 32.4 % (20.0-40.0); MEAN CELL VOLUME 88.4 fL (80.0-94.0); MEAN CORPUSCULAR HEMOGLOBIN 29.4 pg (27.0-31.0); MEAN CORPUSCULAR HGB CONC 33.3 g/dL (33.0-37.0); MEAN PLATELET VOLUME 11.2 fL (7.2-11.7); MONO # 0.4 K/uL (0.0-0.8); MONO % 8.1 % (0.0-10.0); NEUT # 2.7 K/uL (1.8-7.0); NEUT % 55.1 % (50.0-75.0); NRBC % 0.1 % (0.0-2.0); RBC 5.02 Mil/uL (4.40-5.90); RED CELL DISTRIBUTION WIDTH 13.6 % (11.5-14.5); WHITE BLOOD COUNT 4.9 K/uL (4.8-10.8)
[2017-02-11 08:32] LABS: ALBUMIN 3.7 g/dL (3.5-5.0)
[2017-02-11 08:33] LABS: ALB/GLOB RATIO 1.3 (1.0-2.1); ALT/SGPT 28 U/L (21-72); AST/SGOT 24 U/L (17-59); BLOOD UREA NITROGEN 17 mg/dL (9-20); GFR AFRICAN-AMERICAN > 60; GFR NON-AFRICAN AMERICAN > 60
[2017-02-11 08:34] LABS: HDL CHOLESTEROL 42 mg/dL (30-70); MAGNESIUM 2.3 mg/dL (1.6-2.3)
[2017-02-11 08:46] LABS: LDL CHOLESTEROL 70 mg/dL (0-129)
[2017-02-11] MEDS ORDERED: Tmp-Smz 800 mg-160 mg DS Tab PO SCH (10:45)
--- NOTE | 2017-02-11 11:02 | CP.PCM.PN ---
Subjective - Date & Time of Evaluation Date of Evaluation: 02/11/17 Time of Evaluation: 10:59 - Subjective Subjective: Medicine Progress Note- Dr. Pope Service Patient was seen and examined at bedside in no acute distress. Patient reports feeling well. He states his arm is less swollen and less painful. Patient reports having a loose stool yesterday. Patient reports he is walking and eating well. Patient denies chest pain, abdominal pain, palpitations, headaches , nausea, vomiting, and leg pain. Objective - Vital Signs/Intake and Output Vital Signs (last 24 hours): Temp Pulse Resp BP Pulse Ox 97.8 F 72 20 150/70 99 02/11/17 08:28 02/11/17 08:28 02/11/17 08:28 02/11/17 08:28 02/11/17 08:28 - Medications Medications: Current Medications Acetaminophen (Tylenol 325mg Tab) 650 mg PO Q6 PRN PRN Reason: Pain, moderate (4-7) Last Admin: 02/08/17 05:39 Dose: 650 mg Docusate Sodium (Colace) 100 mg PO BID [facility] Last Admin: 02/10/17 18:28 Dose: 100 mg Heparin Sodium (Porcine) (Heparin) 5,000 units SC Q12 [facility] Last Admin: 02/10/17 22:00 Dose: 5,000 units Insulin Human Regular (Novolin R) 0 unit SC ACHS [facility] PRN Reason: Protocol Last Admin: 02/11/17 08:10 Dose: Not Given Losartan Potassium (Cozaar) 25 mg PO Q12H [facility] Last Admin: 02/10/17 23:42 Dose: 25 mg Mupirocin (Bactroban Ointment) 1 gm TOP BID [facility] Rosuvastatin Calcium (Crestor) 5 mg PO HS [facility] Last Admin: 02/10/17 22:00 Dose: 5 mg Saccharomyces Boulardii (Florastor) 250 mg PO BID [facility] Last Admin: 02/10/17 18:28 Dose: 250 mg Trimethoprim/Sulfamethoxazole (Bactrim Ds Tab) 1 tab PO Q12 [facility] - Labs Labs: 02/11/17 08:00 02/11/17 08:00 PT 11.6 SECONDS (9.7-12.2) 02/07/17 22:15 INR 1.0 02/07/17 22:15 APTT 32 SECONDS (21-34) 02/07/17 22:15 - Constitutional Appears: No Acute Distress - Head Exam Head Exam: NORMAL INSPECTION, NORMOCEPHALIC - Eye Exam Eye Exam: EOMI, Normal appearance - ENT Exam ENT Exam: Mucous Membranes Moist - Neck Exam Neck Exam: Full ROM, Normal Inspection - Respiratory Exam Respiratory Exam: NORMAL BREATHING PATTERN. absent: Rhonchi, Wheezes - Cardiovascular Exam Cardiovascular Exam: REGULAR RHYTHM, +S1, +S2 - GI/Abdominal Exam GI & Abdominal Exam: Soft, Normal Bowel Sounds - Extremities Exam Extremities Exam: Full ROM. absent: Pedal Edema, Tenderness - Neurological Exam Neurological Exam: Alert, Awake, Oriented x3 - Psychiatric Exam Psychiatric exam: Normal Affect, Normal Mood - Skin Skin Exam: Dry, Intact, Normal Color, Warm Additional comments: wound L elbow- clean, no discharge, swelling has decreased Assessment and Plan (1) Swelling of elbow joint Status: Acute (2) Diabetes mellitus Status: Chronic (3) HLD (hyperlipidemia) Status: Chronic (4) HTN (hypertension) Status: Chronic (5) Prophylactic measure Status: Acute
[2017-02-11] MEDS: Saccharomyces Boulardi 250 mg Cap PO SCH (12:17)
--- NOTE | 2017-02-11 12:32 | US ---
PROCEDURE: Rule out abscess of left forearm HISTORY: r/o abscess COMPARISON: Not available TECHNIQUE: Targeted ultrasound examination was performed utilizing a linear array transducer FINDINGS: Examination of the dorsal left proximal forearm demonstrates no solid or cystic mass. There is heterogeneity of the subcutaneous soft tissues without significant vascularity. This is a nonspecific finding. The possibility of phlegmon may be considered but there is no evidence of bhakti abscess. . There is cutaneous thickening noted in the region of concern. IMPRESSION: No bhakti abscess identified. Heterogeneous subcutaneous soft tissues in the region of concern, dorsal proximal left forearm. Cutaneous thickening noted.
--- NOTE | 2017-02-11 14:31 | CP.PCM.PN ---
Subjective - Date & Time of Evaluation Date of Evaluation: 02/11/17 Time of Evaluation: 02:00 - Subjective Subjective: dictated Objective - Vital Signs/Intake and Output Vital Signs (last 24 hours): Temp Pulse Resp BP Pulse Ox 97.8 F 79 20 149/82 99 02/11/17 08:28 02/11/17 12:15 02/11/17 08:28 02/11/17 12:15 02/11/17 08:28 - Medications Medications: Current Medications Acetaminophen (Tylenol 325mg Tab) 650 mg PO Q6 PRN PRN Reason: Pain, moderate (4-7) Last Admin: 02/08/17 05:39 Dose: 650 mg Docusate Sodium (Colace) 100 mg PO BID [facility] Last Admin: 02/11/17 12:17 Dose: 100 mg Heparin Sodium (Porcine) (Heparin) 5,000 units SC Q12 [facility] Last Admin: 02/11/17 12:17 Dose: 5,000 units Insulin Human Regular (Novolin R) 0 unit SC ACHS [facility] PRN Reason: Protocol Last Admin: 02/11/17 11:30 Dose: Not Given Losartan Potassium (Cozaar) 25 mg PO Q12H [facility] Last Admin: 02/11/17 12:17 Dose: 25 mg Mupirocin (Bactroban Ointment) 1 gm TOP BID [facility] Rosuvastatin Calcium (Crestor) 5 mg PO HS [facility] Last Admin: 02/10/17 22:00 Dose: 5 mg Saccharomyces Boulardii (Florastor) 250 mg PO BID [facility] Last Admin: 02/11/17 12:17 Dose: 250 mg Trimethoprim/Sulfamethoxazole (Bactrim Ds Tab) 1 tab PO Q12 [facility] Last Admin: 02/11/17 13:33 Dose: 1 tab - Labs Labs: 02/11/17 08:00 02/11/17 08:00 PT 11.6 SECONDS (9.7-12.2) 02/07/17 22:15 INR 1.0 02/07/17 22:15 APTT 32 SECONDS (21-34) 02/07/17 22:15 Assessment and Plan (1) Swelling of elbow joint Status: Acute
[2017-02-11 17:38] VITALS: BP 154/87; PULSE 87; TEMP 98; O2SAT 96
--- NOTE | 2017-02-11 21:29 | CP.PCM.DIS ---
<Celi Ji - Last Filed: 02/11/17 21:26> Provider - Provider Date of Admission: 02/08/17 00:17 Attending physician: David Monae MD Primary care physician: Dr. Don Consults: Dr. Stafford Time Spent in preparation of Discharge (in minutes): 45 Diagnosis - Discharge Diagnosis (1) Swelling of elbow joint Status: Resolved Comment: See hospital summary for more details. (2) Diabetes mellitus Status: Chronic Comment: See hospital summary for more details. (3) HLD (hyperlipidemia) Status: Chronic Comment: See hospital summary for more details. (4) HTN (hypertension) Status: Chronic Comment: See hospital summary for more details. Hospital Course - Lab Results Lab Results: Micro Results 02/10/17 18:00 Blood Blood Culture - Preliminary NO GROWTH AFTER 24 HOURS 02/10/17 15:25 Blood Blood Culture - Preliminary NO GROWTH AFTER 24 HOURS Most Recent Lab Values WBC 4.9 K/uL (4.8-10.8) 02/11/17 08:00 RBC 5.02 Mil/uL (4.40-5.90) 02/11/17 08:00 Hgb 14.8 g/dL (12.0-18.0) 02/11/17 08:00 Hct 44.4 % (35.0-51.0) 02/11/17 08:00 MCV 88.4 fL (80.0-94.0) 02/11/17 08:00 MCH 29.4 pg (27.0-31.0) 02/11/17 08:00 MCHC 33.3 g/dL (33.0-37.0) 02/11/17 08:00 RDW 13.6 % (11.5-14.5) 02/11/17 08:00 Plt Count 134 K/uL (130-400) 02/11/17 08:00 MPV 11.2 fL (7.2-11.7) 02/11/17 08:00 Neut % (Auto) 55.1 % (50.0-75.0) 02/11/17 08:00 Lymph % (Auto) 32.4 % (20.0-40.0) 02/11/17 08:00 Wilcox % (Auto) 8.1 % (0.0-10.0) 02/11/17 08:00 Eos % (Auto) 3.5 % (0.0-4.0) 02/11/17 08:00 Baso % (Auto) 0.9 % (0.0-2.0) 02/11/17 08:00 Neut # 2.7 K/uL (1.8-7.0) 02/11/17 08:00 Lymph # 1.6 K/uL (1.0-4.3) 02/11/17 08:00 Wilcox # 0.4 K/uL (0.0-0.8) 02/11/17 08:00 Eos # 0.2 K/uL (0.0-0.7) 02/11/17 08:00 Baso # 0.0 K/uL (0.0-0.2) 02/11/17 08:00 Differential Comment 02/09/17 11:53 PT 11.6 SECONDS (9.7-12.2) 02/07/17 22:15 INR 1.0 02/07/17 22:15 APTT 32 SECONDS (21-34) 02/07/17 22:15 Sodium 140 mmol/L (132-148) 02/11/17 08:00 Potassium 3.9 mmol/L (3.6-5.2) 02/11/17 08:00 Chloride 105 mmol/L (98-107) 02/11/17 08:00 Carbon Dioxide 26 mmol/L (22-30) 02/11/17 08:00 Anion Gap 13 (10-20) 02/11/17 08:00 BUN 17 mg/dL (9-20) 02/11/17 08:00 Creatinine 0.7 MG/DL (0.8-1.5) L 02/11/17 08:00 Est GFR ( Amer) > 60 02/11/17 08:00 Est GFR (Non-Af Amer) > 60 02/11/17 08:00 POC Glucose (mg/dL) 125 mg/dL (65-110) H 02/11/17 12:00 Random Glucose 95 mg/dL (75-110) 02/11/17 08:00 Hemoglobin A1c 6.4 % (4.2-6.5) 02/11/17 08:00 Calcium 9.0 mg/dl (8.6-10.4) 02/11/17 08:00 Phosphorus 3.7 mg/dL (2.5-4.5) 02/11/17 08:00 Magnesium 2.3 mg/dL (1.6-2.3) 02/11/17 08:00 Total Bilirubin 0.6 mg/dL (0.2-1.3) 02/11/17 08:00 AST 24 U/L (17-59) 02/11/17 08:00 ALT 28 U/L (21-72) 02/11/17 08:00 Alkaline Phosphatase 34 U/L (38-126) L 02/11/17 08:00 Total Protein 6.6 g/dL (6.3-8.3) 02/11/17 08:00 Albumin 3.7 g/dL (3.5-5.0) 02/11/17 08:00 Globulin 2.9 gm/dL (2.2-3.9) 02/11/17 08:00 Albumin/Globulin Ratio 1.3 (1.0-2.1) 02/11/17 08:00 Triglycerides 65 mg/dL (0-149) 02/11/17 08:00 Cholesterol 119 mg/dL (0-199) 02/11/17 08:00 LDL Cholesterol Direct 70 mg/dL (0-129) 02/11/17 08:00 HDL Cholesterol 42 mg/dL (30-70) 02/11/17 08:00 Vancomycin Trough 10.8 ug/mL (5.0-10.0) H 02/11/17 01:16 - Hospital Course Hospital Course: CC: Left forearm swelling s/p lipoma resection HPI: Mr Monte is a 66 yo male who presented to the ED for Left forearm swelling, discomfort and bleeding from the surgical site. Mr Monte is s /p lipoma resection [01/28] performed by Dr. Stafford. On 01/30 the patient noticed bleeding from the surgical site. He saw Dr Stafford regarding the bleed on 02/01 who advised him to apply pressure. Over the next few days he noticed increasing swelling and ecchymosis in the left forearm. He admits to tingling and pain in his hand and fingers over that time. He called Dr. Stafford who advised him to come the ED as Dr Stafford was concerned about a venous thrombosis. He took tramadol which controlled his pain. The patient has not taken his aspirin since the surgery as instructed. He denies fevers, chills, diaphoresis. Patient was admitted for cellulitis of his left elbow. Patient was given vancomycin and rocephin. CT of his upper extremities showed subcutaneous edema in the posterior soft tissues of the elbow joint which could represent cellulitis and venous dopplers were negative. Infectious disease was consulted and Dr. Esparza ordered wound cultures which were positive for methicillin resistant staph aureas. As per ID, rocephin was discontinued and patient was given zosyn and vanomycin. Blood cultures were negative times two. Patient was instructed to elevate the arm. The surgeon, Dr. Stafford was consulted. Extremity ultrasound showed no abbesses. As per Dr. Pope, Dr. Esparza, and Dr. Stafford, the patient is stable for discharge to home with PO antibiotics and topical antibiotic ointment. This is a summary of the hospital course. Please see chart for more details. Patient is stable for discharge to home as per Dr. Pope. Patient is to resume all home medications and start new medications listed below. Aspirin 81mg by mouth daily Atorvastatin 10mg by mouth daily Metformin 500mg by mouth daily Mupirocin- apply topically to wound twice per day (new medication) Mupirocin- apply inside nares twice per day (new medication) Bactrim DS take 1 tablet twice a day for 10 days. (new medication) Patient should follow up with PMD, Dr Don, within one week of discharge. Patient should follow up with surgeon, Dr. Stafford, within one week of discharge. These instructions have been discussed with the patient. If patients symptoms reoccur, patient should return to the ED. Discharge Exam - Head Exam Head Exam: NORMAL INSPECTION - Eye Exam Eye Exam: EOMI, Normal appearance - ENT Exam ENT Exam: Mucous Membranes Moist - Neck Exam Neck exam: Full Rom, Normal Inspection - Respiratory Exam Respiratory Exam: Clear to PA & Lateral, NORMAL BREATHING PATTERN, UNREMARKABLE. absent: Wheezes - Cardiovascular Exam Cardiovascular Exam: REGULAR RHYTHM, +S1, +S2 - GI/Abdominal Exam GI & Abdominal Exam: Normal Bowel Sounds, Soft, Unremarkable - Extremities Exam Extremities exam: full ROM, normal inspection - Neurological Exam Neurological exam: Alert, Normal Gait, Oriented x3 - Psychiatric Exam Psychiatric exam: Normal Affect, Normal Mood - Skin Skin Exam: Dry, Intact, Normal Color, Warm Additional comments: Left elbow wound- no discharge, clean, healing well Discharge Plan - Discharge Medications Prescriptions: Mupirocin 2% Nasal [Bactroban 2% Nasal] 30 gm TOP BID #1 gm Mupirocin 2% Ointment [Bactroban Ointment] 30 gm TOP BID #1 Sulfamethoxazole/Trimethoprim [Bactrim DS Tab] 1 tab PO Q12 #20 tab - Follow Up Plan Condition: GOOD Disposition: HOME/ ROUTINE Instructions: MRSA (Methicillin Resistant Staphylococcus Aureus) (DC), Cellulitis (DC), Diabetes Mellitus Type 2 in Adults (DC), Acute Wound Care (DC) , Chronic Hypertension (DC) Additional Instructions: Patient is stable for discharge to home as per Dr. Pope. Patient is to resume all home medications and start new medications listed below. Aspirin 81mg by mouth daily Atorvastatin 10mg by mouth daily Metformin 500mg by mouth daily Mupirocin- apply topically to wound twice per day (new medication) Mupirocin- apply inside nares twice per day (new medication) Bactrim DS take 1 tablet twice a day for 10 days. (new medication) Patient should follow up with PMD, Dr Don, within one week of discharge. Patient should follow up with surgeon, Dr. Stafford, within one week of discharge. These instructions have been discussed with the patient. If patients symptoms reoccur, patient should return to the ED. Referrals: Livan Stafford MD [Staff Provider] - <Milady Pope V - Last Filed: 02/17/17 17:52> Provider - Provider Date of Admission: 02/08/17 00:17 Attending physician: David Monae MD Diagnosis - Discharge Diagnosis (1) Cellulitis Status: Acute (2) Diabetes mellitus Status: Chronic (3) HLD (hyperlipidemia) Status: Chronic (4) HTN (hypertension) Status: Chronic (5) Prophylactic measure Status: Acute Hospital Course - Lab Results Lab Results: Micro Results 02/10/17 18:00 Blood Blood Culture - Final NO GROWTH AFTER 5 DAYS 02/10/17 18:00 Blood Gram Stain - Final TEST NOT PERFORMED 02/10/17 15:25 Blood Blood Culture - Final NO GROWTH AFTER 5 DAYS 02/10/17 15:25 Blood Gram Stain - Final TEST NOT PERFORMED Most Recent Lab Values WBC 4.9 K/uL (4.8-10.8) 02/11/17 08:00 RBC 5.02 Mil/uL (4.40-5.90) 02/11/17 08:00 Hgb 14.8 g/dL (12.0-18.0) 02/11/17 08:00 Hct 44.4 % (35.0-51.0) 02/11/17 08:00 MCV 88.4 fL (80.0-94.0) 02/11/17 08:00 MCH 29.4 pg (27.0-31.0) 02/11/17 08:00 MCHC 33.3 g/dL (33.0-37.0) 02/11/17 08:00 RDW 13.6 % (11.5-14.5) 02/11/17 08:00 Plt Count 134 K/uL (130-400) 02/11/17 08:00 MPV 11.2 fL (7.2-11.7) 02/11/17 08:00 Neut % (Auto) 55.1 % (50.0-75.0) 02/11/17 08:00 Lymph % (Auto) 32.4 % (20.0-40.0) 02/11/17 08:00 Wilcox % (Auto) 8.1 % (0.0-10.0) 02/11/17 08:00 Eos % (Auto) 3.5 % (0.0-4.0) 02/11/17 08:00 Baso % (Auto) 0.9 % (0.0-2.0) 02/11/17 08:00 Neut # 2.7 K/uL (1.8-7.0) 02/11/17 08:00 Lymph # 1.6 K/uL (1.0-4.3) 02/11/17 08:00 Wilcox # 0.4 K/uL (0.0-0.8) 02/11/17 08:00 Eos # 0.2 K/uL (0.0-0.7) 02/11/17 08:00 Baso # 0.0 K/uL (0.0-0.2) 02/11/17 08:00 Differential Comment 02/09/17 11:53 PT 11.6 SECONDS (9.7-12.2) 02/07/17 22:15 INR 1.0 02/07/17 22:15 APTT 32 SECONDS (21-34) 02/07/17 22:15 Sodium 140 mmol/L (132-148) 02/11/17 08:00 Potassium 3.9 mmol/L (3.6-5.2) 02/11/17 08:00 Chloride 105 mmol/L (98-107) 02/11/17 08:00 Carbon Dioxide 26 mmol/L (22-30) 02/11/17 08:00 Anion Gap 13 (10-20) 02/11/17 08:00 BUN 17 mg/dL (9-20) 02/11/17 08:00 Creatinine 0.7 MG/DL (0.8-1.5) L 02/11/17 08:00 Est GFR ( Amer) > 60 02/11/17 08:00 Est GFR (Non-Af Amer) > 60 02/11/17 08:00 POC Glucose (mg/dL) 125 mg/dL (65-110) H 02/11/17 12:00 Random Glucose 95 mg/dL (75-110) 02/11/17 08:00 Hemoglobin A1c 6.4 % (4.2-6.5) 02/11/17 08:00 Calcium 9.0 mg/dl (8.6-10.4) 02/11/17 08:00 Phosphorus 3.7 mg/dL (2.5-4.5) 02/11/17 08:00 Magnesium 2.3 mg/dL (1.6-2.3) 02/11/17 08:00 Total Bilirubin 0.6 mg/dL (0.2-1.3) 02/11/17 08:00 AST 24 U/L (17-59) 02/11/17 08:00 ALT 28 U/L (21-72) 02/11/17 08:00 Alkaline Phosphatase 34 U/L (38-126) L 02/11/17 08:00 Total Protein 6.6 g/dL (6.3-8.3) 02/11/17 08:00 Albumin 3.7 g/dL (3.5-5.0) 02/11/17 08:00 Globulin 2.9 gm/dL (2.2-3.9) 02/11/17 08:00 Albumin/Globulin Ratio 1.3 (1.0-2.1) 02/11/17 08:00 Triglycerides 65 mg/dL (0-149) 02/11/17 08:00 Cholesterol 119 mg/dL (0-199) 02/11/17 08:00 LDL Cholesterol Direct 70 mg/dL (0-129) 02/11/17 08:00 HDL Cholesterol 42 mg/dL (30-70) 02/11/17 08:00 Vancomycin Trough 10.8 ug/mL (5.0-10.0) H 02/11/17 01:16 Attending/Attestation - Attestation I have personally seen and examined this patient.: Yes I have fully participated in the care of the patient.: Yes I have reviewed all pertinent clinical information, including history, physical exam and plan: Yes Notes (Text): This is late computer entry for 02/11/17. Patient seen, examined, and case discussed with day-time internal medicine nurse practitioner. Patient seen by surgeon prior to my arrival. Patient upset from his encounter from the surgeon during my encounter. Patient's and daughter, Annita at bedside. Discussed with infectious disease, patient may take Doxycycline or Bactrim upon discharge. Patient originally given Doxycyclne and Clindamycin by the surgeon. Patient's wound culture shows he is resistant Clindamycin. Discussed CT and Extremity US results with patient and permitted by the patient , with his family at bedside. Discharge order and discharge instructions discussed with patient and family at bedside. Patient provided work excuse note for the time he has been in the hospital. Prescriptions upon discharge 1) Aspirin 81mg by mouth daily 2) Atorvastatin 10mg by mouth daily 3) Metformin 500mg by mouth daily 4) Mupirocin- apply topically to wound twice per day (new medication) 5) Mupirocin- apply inside nares twice per day (new medication) 6) Bactrim DS take 1 tablet twice a day for 10 days. (new medication) Discussed with patient on 02/12/17 via phone regarding the nasal formulation of Mupirocin, which he reports he has tried 3-5 pharmacies and cannot find. I personally discussed with the in-patient pharmacy regarding this formulation. Regarding this medication it is no longer made. Recommended for Mupirocin ointment to be used in very small amounts 2x a day for 5 days only. Discussed with patient at his home number attached to this chart, who verbalized understanding and appreciation for the help provided. This is a summary of patient's hospitalization. Please see EMR for further details.
== END 2017-02-11 18:25 | disposition home or self-care (01) ==
LOC: C.ER 17:34 → C.9E 02-08 00:17 → C.5T 02-08 01:18
PROVIDERS: ADMIT Internal Medicine; ATTEND Internal Medicine
DX: M25.422 Effusion, left elbow (principal); M79.89 Other specified soft tissue disorders; E11.9 Type 2 diabetes mellitus without complications; E78.5 Hyperlipidemia, unspecified; I10 Essential (primary) hypertension; K59.00 Constipation, unspecified; L03.114 Cellulitis of left upper limb; Z87.891 Personal history of nicotine dependence
CPT/HCPCS: 36415; 73201; 76881; 80053; 80061; 80202; 82948; 83036; 83735; 84100; 85025; 85027; 85610; 85730; 87040; 87070; 87181; 93971; 99281; G0378; J0696; J1644; J2543; J3370; Q9967